=== PATIENT | male | born 1955 | race Caucasian/White ===

== ENCOUNTER 2023-01-28 09:25 | Emergency (ER) | payer MEDICARE, SELFPAY ==
[2023-01-28] VITALS (14 sets, daily range): BP systolic 193–280; BP diastolic 89–130; PULSE 94–115; RESP 10–18; TEMP 36.4; O2SAT 96–100
--- NOTE | ~2023-01-28 | CT_ITS ---
Non-contrast Head CT History: Hypertension Technique: Axial non-contrast imaging of the brain was performed. Dose reduction technique was used on this scan by utilizing automated exposure control and iterative reconstruction technique. The dose -length product (DLP) was 681.00 mGy-cm. Findings: There is no evidence of intracranial hemorrhage, mass lesion, or acute infarct. Brain par enchyma appears normal. The ventricles and subarachnoid spaces are normal in size. The calvarium ap pears normal. The visualized paranasal sinuses and mastoid air cells are clear. Impression: No significant abnormality seen. Reviewed, dictated and finalized at location . Impression: No significant abnormality seen.
--- NOTE | 2023-01-28 09:32 | ECG_ITS ---
Measurements Intervals [place] Rate: 116 P: 58 IN: 144 QRS: 57 QRSD: 84 T: 20 QT: 303 QTc: 423 Interpretive Statements SINUS TACHYCARDIA WITH OCCASIONAL VENTRICULAR PREMATURE COMPLEXES POSSIBLE LEFT ATRIAL ENLARGEMENT [-0.1mV P WAVE IN V1/V2] NONSPECIFIC T-WAVE ABNORMALITY ABNORMAL ECG NO PREVIOUS ECG AVAILABLE FOR COMPARISON Electronically Signed On 01-28-2023 17:17:01 CDT by Kimo Gayle M.D.
[2023-01-28 09:55] LABS: Basophils Percent Auto 0.2 % (0.2-1.2); Eosinophils Absolute Auto 0.1 K/mm3 (0-0.3); Hematocrit 47.8 % (42.0-52.0); Hemoglobin 15.8 g/dL (14.0-18.0); Immature Granulocyte Absolute 0.01 K/mm3 (0.00-0.031); Immature Granulocyte Percent A 0.2 % (0-0.5); Lymphocytes Absolute Auto 1.67 K/mm3 (0.9-3.2); Lymphocytes Percent Auto 29.2 % (18.3-44.2); Mean Corpuscular HGB Conc 33.1 g/dl (32-36); Mean Corpuscular Hemoglobin 33.1 pg (26-34); Mean Platelet Volume 8.7 fl (7.4-10.4); Monocytes Absolute Auto 0.5 K/mm3 (0.1-0.6); Monocytes Percent Auto 8.6 % (2.6-8.5); Neutrophils Absolute Auto 3.5 K/mm3 (1.3-6.7); Neutrophils Percent Auto 60.8 % (45.5-73.1); Platelet Count Result 215 k/mm3 (150-375); Red Blood Count 4.78 M/mm3 (4.6-6.20); Red Cell Distribution Width 13.3 % (11.5-14.5); White Blood Count 5.7 K/mm3 (4.5-10.0)
[2023-01-28] MEDS: hydrALAZINE HCL 20 MG/ML VIAL 10 MG IV PUSH (10:01)
[2023-01-28 10:04] LABS: Alanine Aminotransferase 26 U/L (6-50); Albumin Level 4.9 g/dL (3.5-5.1); Alkaline Phosphatase 71 U/L (38-126); Anion Gap 6 mmol/L (8-16); Aspartate Amino Transferase 32 U/L (17-59); Bilirubin,Total 1.2 mg/dL (0.2-1.3); Blood Urea Nitrogen 12 mg/dL (9-20); Carbon Dioxide 29 mmol/L (22-30); Chloride 102 mmol/L (98-107); Estimated CRCL calculation 92 ml/min; Estimated Glomerular Filt Rate > 60; Glucose 115 mg/dL (65-110); Potassium 4.3 mmol/L (3.4-5.0); Sodium 137 mmol/L (137-145)
--- NOTE | 2023-01-28 10:07 | ED.DIZZY ---
HPI - Dizziness General Chief Complaint: Dizziness Stated Complaint: Not feeling right Time Seen by Provider: 01/28/23 09:46 History of Present Illness HPI Narrative: 67-year-old male presented the emergency department for evaluation of elevated blood pressure. Patient states that he had a syncopal episode for approximate 1 minute approximately 2 weeks ago when he was having coffee with his brother. EMS was called and patient was found to be hypertensive with a systolic blood pressure of 190. Patient states that today he was having some increased lightheadedness and presented to ED for evaluation. Related Data Allergies Allergy/AdvReac Type Severity Reaction Status Date / Time No Known Allergies Allergy Verified 01/28/23 09:54 Review of Systems Review of Systems: All systems reviewed & are unremarkable except as noted in HPI and below Exam Narrative: APPEARANCE: Well appearing, no pain, no distress, well-nourished. HEAD: normocephalic, atraumatic. EYES: PERRLA/EOMI, conjunctivae clear. NOSE: Normal no drainage NECK: Supple. No adenopathy, no masses. RESPIRATORY: Airway patent, respirations nonlabored. Clear to auscultation bilaterally, no rales, rhonchi, wheezing. CARDIOVASCULAR: Regular rate and rhythm without murmurs rubs or gallops. ABDOMINAL: Soft, nontender, nondistended, normal bowel sounds MUSCULOSKELETAL: Moves all extremities. Strength/ROM intact, No edema, No calf tenderness. NEURO: Alert. Cranial nerves II through XII intact. Grossly intact SKIN: Warm, dry. Normal Color Course Course Emergency Course: 67-year-old male with history of uncontrolled hypertension presented the emergency department for evaluation of elevated blood pressure. I had lengthy discussion with the patient recommending admission and patient continued to decline. Patient's blood pressure was decreased by 30%. Patient was started on hydrochlorothiazide. Patient was educated on reasons to return to the emergency department. Patient states he does have follow-up on Wednesday with his primary care physician. Vital Signs Vital signs: Vital Signs Temperature 97.6 F 01/28/23 09:28 Pulse Rate 115 H 01/28/23 09:28 Respiratory Rate 18 01/28/23 09:28 Blood Pressure 280/130 H 01/28/23 09:28 Pulse Oximetry 100 01/28/23 09:28 Oxygen Delivery Room Air 01/28/23 09:28 Temperature 97.6 F 01/28/23 09:28 Pulse Rate 95 01/28/23 12:31 Respiratory Rate 12 01/28/23 12:31 Blood Pressure 193/89 H 01/28/23 12:31 Pulse Oximetry 97 01/28/23 12:31 Oxygen Delivery Room Air 01/28/23 09:28 MDM - Dizziness Differential Diagnosis Differential diagnosis: Likely other (Hypertensive urgency) Lab Data Attestation: I reviewed the patient's lab results. 01/28/23 09:48 01/28/23 09:48 Labs: Lab Results 01/28/23 Range/Units 09:48 WBC 5.7 (4.5-10.0) K/mm3 RBC 4.78 (4.6-6.20) M/mm3 Hgb 15.8 (14.0-18.0) g/dL Hct 47.8 (42.0-52.0) % MCV 100.0 (80-100) fl MCH 33.1 (26-34) pg MCHC 33.1 (32-36) g/dl RDW 13.3 (11.5-14.5) % Plt Count 215 (150-375) k/mm3 MPV 8.7 (7.4-10.4) fl Immature Gran % (Auto) 0.2 (0-0.5) % Neut % (Auto) 60.8 (45.5-73.1) % Lymph % (Auto) 29.2 (18.3-44.2) % Dare % (Auto) 8.6 H (2.6-8.5) % Eos % (Auto) 1.0 (0-4.4) % Baso % (Auto) 0.2 (0.2-1.2) % Lymph # (Auto) 1.67 (0.9-3.2) K/mm3 Dare # (Auto) 0.5 (0.1-0.6) K/mm3 Eos # (Auto) 0.1 (0-0.3) K/mm3 Baso # (Auto) 0.0 (0.0-0.1) K/mm3 Abs Immat Gran (auto) 0.01 (0.00-0.031) K/mm3 Absolute Neuts (auto) 3.5 (1.3-6.7) K/mm3 Absolute Nucleated RBC 0.0 (0.0-0.012) K/mm3 Nucleated RBC % 0.0 (0.0-0.2) % Sodium 137 (137-145) mmol/L Potassium 4.3 (3.4-5.0) mmol/L Chloride 102 (98-107) mmol/L Carbon Dioxide 29 (22-30) mmol/L Anion Gap 6 L (8-16) mmol/L BUN 12 (9-20) mg/dL Creatinine 0.90 (0.7-1.3) mg/dL Estim Creat Clear Calc 92 ml/min Estim
[2023-01-28 10:53] LABS: Troponin I < 0.012 ng/mL (0.000-0.034)
[2023-01-28] MEDS: METOPROLOL TARTRATE INJ 5 MG/5 ML VIAL IV PUSH (11:26)
[2023-01-28] MEDS: hydroCHLOROthiazide 25 MG TABLET PO (12:39)
== END 2023-01-28 12:41 | disposition home or self-care (01) ==
PROVIDERS: Emergency Provider Emergency Medicine
DX: I10 Essential (primary) hypertension (principal); R00.0 Tachycardia, unspecified; I49.3 Ventricular premature depolarization; R94.31 Abnormal electrocardiogram [ECG] [EKG]
CPT/HCPCS: 36415; 70450; 80053; 84484; 85025; 93005; 96374; 96375; 99284; A9270; J0360

== ENCOUNTER 2023-09-20 16:52 | Inpatient (IN) | payer MEDICARE, SELFPAY ==
[2023-09-20] VITALS (7 sets, daily range): BP systolic 103–143; BP diastolic 54–76; PULSE 69–83; RESP 13–20; TEMP 36.8–37; O2SAT 99–100; BMI 28.8
--- NOTE | ~2023-09-20 | US_ITS ---
US renal BI 09/23/2023 12:47 Procedure: Realtime transabdominal ultrasound of the kidneys and bladder. Indication: History of left renal agenesis. Acute renal insufficiency. Comparison: No prior studies for comparison. Findings: Right kidney is hypertrophic measuring 17.2 cm. No masses, hydronephrosis or stones are mayur ntified. Left kidney is not visualized. Bladder is not distended for evaluation. Impression: 1: Compensatory hypertrophy of the right kidney. Reviewed, dictated and finalized at location B. Impression: 1: Compensatory hypertrophy of the right kidney.
--- NOTE | ~2023-09-20 | XR_ITS ---
EXAMINATION: XR chest 1V portable Exam Date/Time: 09/20/2023 18:00 CDT HISTORY: fall Comparison: 08/24/2005. RESULT: Lines, tubes, and devices: None. Lungs and pleura: Clear. Cardiomediastinal silhouette: Stable. Other: No acute osseous or upper abdominal finding. IMPRESSION: No acute cardiopulmonary process. Reviewed, dictated and finalized at location K.
--- NOTE | ~2023-09-20 | CT_ITS ---
EXAMINATION: CT cervical spine wo con DATE: 09/20/2023 18:44 INDICATION: trauma TECHNIQUE: Computed tomography (CT) of the cervical spine was performed without intravenous contrast. Automated exposure control and iterative reconstruction technique were employed. The dose-length pro duct was 681.00 mGy-cm. Examination not completed for approximately 40 minutes, which delayed interpr etation COMPARISON: None. FINDINGS: Vertebral Body Alignment: Intact. Reversed lordosis, centered at C3-4. Craniocervical and atlantoaxial alignment: Mild degenerative change. Alignment intact. Osseous structures/fracture: No evidence of a lytic or blastic process in the visualized spine. No e vidence of acute fracture. Cervical soft tissues: The paraspinal soft tissues planes are maintained. Degenerative changes: Multilevel degenerative disc disease and facet arthropathy. Multilevel bilatera l severe neural foraminal narrowing. No severe central canal narrowing. IMPRESSION: No acute fracture or traumatic malalignment in the cervical spine. Reviewed, dictated and finalized at location K.
--- NOTE | ~2023-09-20 | CT_ITS ---
EXAMINATION: CT brain wo con DATE: 09/20/2023 18:44 INDICATION: mental status . TECHNIQUE: Computed tomography (CT) of the head was performed without intravenous contrast. The mA wa s adjusted according to patient size. Iterative reconstruction technique was employed. The dose-lengt h product was 681.00 mGy-cm. Examination not completed for approximately 40 minutes which delayed int erpretation. COMPARISON: 01/28/2023. FINDINGS: No acute intracranial hemorrhage or extra-axial fluid collection. No hydrocephalus, mass, or herniation. No acute ischemic infarct. Unremarkable dural venous sinus attenuation. No acute osseous abnormality. Left parietal scalp swelling/hematoma. The aerated spaces are clear. IMPRESSION: No acute intracranial process. Reviewed, dictated and finalized at location K.
--- NOTE | 2023-09-20 17:00 | ECG_ITS ---
Test Date: 2023-09-20 17:05:50 Measurements Intervals [place] Rate: 71 P: 31 ME: 208 QRS: 60 QRSD: 90 T: 63 QT: 386 QTc: 421 Interpretive Statements SINUS RHYTHM No previous ECG available for comparison Electronically Signed On 09-21-2023 10:49:49 CDT by Arabella Cee M.D.
[2023-09-20 17:30] LABS: Basophils Percent Auto 0.2 % (0.2-1.2); Eosinophils Percent Auto 0.1 % (0-4.4); Hematocrit 34.7 % (42.0-52.0); Hemoglobin 12.2 g/dL (14.0-18.0); Immature Granulocyte Absolute 0.05 K/mm3 (0.00-0.031); Immature Granulocyte Percent A 0.5 % (0-0.5); Lymphocytes Absolute Auto 1.09 K/mm3 (0.9-3.2); Lymphocytes Percent Auto 11.9 % (18.3-44.2); Mean Corpuscular HGB Conc 35.2 g/dl (32-36); Mean Corpuscular Hemoglobin 34.7 pg (26-34); Mean Corpuscular Volume 98.6 fl (80-100); Mean Platelet Volume 8.9 fl (7.4-10.4); Monocytes Percent Auto 11.1 % (2.6-8.5); Neutrophils Percent Auto 76.2 % (45.5-73.1); Platelet Count Result 270 k/mm3 (150-375); Red Blood Count 3.52 M/mm3 (4.6-6.20); Red Cell Distribution Width 12.6 % (11.5-14.5); White Blood Count 9.2 K/mm3 (4.5-10.0)
[2023-09-20 17:41] LABS: Ethanol 166 mg/dL (<10)
[2023-09-20 17:44] LABS: Alanine Aminotransferase 33 U/L (6-50); Albumin Level 4.8 g/dL (3.5-5.1); Alkaline Phosphatase 98 U/L (38-126); Anion Gap 24 mmol/L (4-12); Aspartate Amino Transferase 62 U/L (17-59); Bilirubin,Total 1.9 mg/dL (0.2-1.3); Blood Urea Nitrogen 17 mg/dL (9-20); Calcium 8.8 mg/dL (8.4-10.2); Carbon Dioxide 16 mmol/L (22-30); Chloride 77 mmol/L (98-107); Estimated CRCL calculation 40 ml/min; Estimated Glomerular Filt Rate 34; Glucose 86 mg/dL (65-110); Potassium 3.5 mmol/L (3.4-5.0); Sodium 117 mmol/L (137-145)
--- NOTE | 2023-09-20 17:52 | ED.ALCOHOL ---
HPI - Alcohol General Chief Complaint: Alcohol Stated Complaint: ?ETOH Time Seen by Provider: 09/20/23 17:44 History of Present Illness HPI narrative: Patient is a 67-year-old male with history of heavy ETOH use, hypertension here after being found down in the parking lot of his apartment complex. Patient states he has been a heavy drinker for many years, he believes that this moore started about 1 week ago. He notes he has been drinking beer and Tequila. EMS noted he was initially unresponsive but awakened in route and confirmed that he had been drinking alcohol. He currently endorses some generalized weakness and fatigue, denies any headache, does not believe he fell or hit his head. Denies any extremity pain or injuries. Denies any chest pain or abdominal pain. He does not believe that he experiences any withdrawal symptoms when he goes days without drinking. Denies any withdrawal tremors or seizures in the past. He does believe he drank alcohol this morning. Related Data Allergies Allergy/AdvReac Type Severity Reaction Status Date / Time No Known Allergies Allergy Verified 03/01/23 11:25 Review of Systems Review of Systems: All systems reviewed & are unremarkable except as noted in HPI and below PMFSH Social History Social History (Updated 03/01/23 @ 11:25 by Teagan Camilo MA) Smoking packs per day: 0.5 Smoking cigarettes per day: 10.0 Years smoked: 20 Smoking pack-years: 10.00 Smoking status: Current every day smoker Tobacco type: cigarettes Alcohol intake: current Drinks per week: 18 Substance use: never Lack of Transportation: No Lack of Food: Never True Current Housing: I Have Housing Concerned About Future Housing: No Difficulty Paying Gas/Electric Bills: No Difficulty Paying for Meds: No Currently Unemployed: No Education: Decline to Answer Difficulty w/ Childcare or Family Care: Decline to Answer Living arrangements: with family Spiritual care concerns: No Agree to blood products: Yes Exam Narrative: GENERAL: Well-appearing, well-nourished, and in no acute distress. HEAD: Normocephalic, atraumatic. EYES: PERRLA and EOMI. ENT: Nares clear. Mucous membranes moist. NECK: Supple. CHEST: Clear to auscultation. No respiratory distress. HEART: Regular rate and rhythm. Normal peripheral pulses. ABDOMEN: Soft, nontender, nondistended. EXTREMITIES: Normal range of motion. No edema. Extremities appear atraumatic. SKIN: Warm, dry, no rash. NEURO: No focal deficits. No facial droop, no upper or lower extremity drift. Alert and oriented x3. PSYCH: Normal mood and affect. Course Course Emergency Course: Chart review performed, patient here after being found in a parking lot of his apartment complex unresponsive. Had endorsed drinking beer and Tequila since the weekend, triage vitals normal. Triage lab work reviewed, CBC unremarkable, sodium low at 117. RAISA present with a creatinine of 2.0, baseline appears to be within normal limits 0.90. Mild elevation in AST. ETOH 166. Patient seen evaluated, nontoxic appearing, he is alert and oriented at this time. Will do CT head, cervical spine, chest x-ray given the fact that he was found down on the ground. Will additionally add on a troponin. IV fluids have been ordered. Discussed plan for admission given hyponatremia, RAISA, patient agreeable. Chest x-ray negative. Spoke with Dr. Trino Callahan who accepts patient for admission. She recommends an additional 2 L normal saline IV fluid resuscitation as well as CIWA orders. The pump placed. She recommends placement and med surge with telemetry. Vital Signs Vital signs: Vital Signs Temperature 98.2 F 09/20/23 16:56 Pulse Rate 69 09/20/23 16:56 Respiratory Rate 14 09/20/23 16:56 Blood Pressure 134/69 09/20/23 16:56 Pulse Oximetry 100 09/20/23 16:56 Oxygen Delivery Room Air 09/20/23 16:56 Temperature 98.2 F 09/20/23 16:56 Pulse
--- NOTE | 2023-09-20 17:52 | PC.NURSE ---
Dr. Martinez informed of low sodium level.
[2023-09-20] MEDS: LACTATED RINGERS 1,000 ML 999 ML IV CONT (18:03)
[2023-09-20 18:51] LABS: Troponin I < 0.012 ng/mL (0.000-0.034)
[2023-09-20 19:17] LABS: Amphetamine Screen Urine Negative (Negative); Appearance Urine Clear (Clear); Bacteria Urine None Seen /hpf; Barbiturate Screen Urine Negative (Negative); Benzodiazepines Screen Urine Negative (Negative); Bilirubin Urine Negative (Negative); Blood Urine 1+ (Negative); Cannabinoid Screen Urine Negative (Negative); Cocaine Screen Urine Negative (Negative); Color Urine Dark Yellow (Yellow); Glucose Urine UA Negative (Negative); Ketones Urine 1+ mg/dL (Negative); Leukocyte Esterase Ur Trace LEU/UL (Negative); Methadone Screen Urine Negative (Negative); Need Manual Microscopic Reviewed; Nitrate Urine Negative (Negative); Opiate Screen Urine Negative (Negative); Phencyclidine Screen Urine Negative (Negative); Protein Urine 1+ mg/dL (Negative); Specific Grav Ur 1.012 (1.001-1.035); Squamous Epithelial Cell Urine Occasional /hpf (Few); pH Urine 5.5 (5.0-9.0)
[2023-09-20 19:20] LABS: Add Urine Microscopic? YES
--- NOTE | 2023-09-20 19:38 | PM.IMHP ---
H&P: HPI History of Present Illness Date/Time: 09/20/23 19:38 Chief Complaint: syncope Narrative: This is a 67-year-old male with medical history significant for hypertension, alcohol dependence. Patient presents to the emergency room due to syncopal episode was found down in the parking lot of his apartment complex and brought to the emergency room. Patient has no recollection of events states that he has been drinking for the last several days not really having meals. It denies any alcohol withdrawal prior to today events. In emergency room patient preliminary workup was significant for sodium 117 chloride 77 creatinine of 2. EXAMINATION: XR chest 1V portable Exam Date/Time: 09/20/2023 18:00 CDT HISTORY: fall Comparison: 08/24/2005. RESULT: Lines, tubes, and devices: None. Lungs and pleura: Clear. Cardiomediastinal silhouette: Stable. Other: No acute osseous or upper abdominal finding. IMPRESSION: No acute cardiopulmonary process. EXAMINATION: CT brain wo con DATE: 09/20/2023 18:44 INDICATION: mental status . TECHNIQUE: Computed tomography (CT) of the head was performed without intravenous contrast. The mA was adjusted according to patient size. Iterative reconstruction technique was employed. The dose-length product was 681.00 mGy-cm. Examination not completed for approximately 40 minutes which delayed interpretation. COMPARISON: 01/28/2023. FINDINGS: No acute intracranial hemorrhage or extra-axial fluid collection. No hydrocephalus, mass, or herniation. No acute ischemic infarct. Unremarkable dural venous sinus attenuation. No acute osseous abnormality. Left parietal scalp swelling/hematoma. The aerated spaces are clear. IMPRESSION: No acute intracranial process. EXAMINATION: CT cervical spine wo con DATE: 09/20/2023 18:44 INDICATION: trauma TECHNIQUE: Computed tomography (CT) of the cervical spine was performed without intravenous contrast. Automated exposure control and iterative reconstruction technique were employed. The dose-length product was 681.00 mGy-cm. Examination not completed for approximately 40 minutes, which delayed interpretation COMPARISON: None. FINDINGS: Vertebral Body Alignment: Intact. Reversed lordosis, centered at C3-4. Craniocervical and atlantoaxial alignment: Mild degenerative change. Alignment intact. Osseous structures/fracture: No evidence of a lytic or blastic process in the visualized spine. No evidence of acute fracture. Cervical soft tissues: The paraspinal soft tissues planes are maintained. Degenerative changes: Multilevel degenerative disc disease and facet arthropathy. Multilevel bilateral severe neural foraminal narrowing. No severe central canal narrowing. IMPRESSION: No acute fracture or traumatic malalignment in the cervical spine. Review of Systems Review of Systems: Syncope ROS unobtainable: Yes unobtainable due to mental status ( patient is inebriated at this time has no recollection of event) [facility] Social History Social History (Updated 03/01/23 @ 11:25 by Teagan Camilo MA) Smoking packs per day: 0.5 Smoking cigarettes per day: 10.0 Years smoked: 20 Smoking pack-years: 10.00 Smoking status: Current every day smoker Tobacco type: cigarettes Alcohol intake: current Drinks per week: 18 Substance use: never Lack of Transportation: No Lack of Food: Never True Current Housing: I Have Housing Concerned About Future Housing: No Difficulty Paying Gas/Electric Bills: No Difficulty Paying for Meds: No Currently Unemployed: No Education: Decline to Answer Difficulty w/ Childcare or Family Care: Decline to Answer Living arrangements: with family Spiritual care concerns: No Agree to blood products: Yes Meds Home Medications and Allergies Home Medications Medication Instructions Recorded Confirmed Type amlodipine 10 mg t
[2023-09-20] MEDS: SODIUM CHLORIDE 0.9% IV 1,000 ML 999 ML IV CONT ×2 (19:47→19:48)
--- NOTE | 2023-09-20 19:54 | PC.NURSE ---
Patient states his last drink was at 1330 today.
[2023-09-20 20:05] LABS: Glucose Point of Care 68 mg/dl (65-105)
[2023-09-20 20:12] LABS: Fractional Inspired Oxygen 21 %; HCO3 VBG 19.5 mEq/l (24.0-30.0)
[2023-09-20 20:13] LABS: Glucose Point of Care 71 mg/dl (65-105)
[2023-09-20 20:14] LABS: PCO2 VBG 30.6 mmHg (42.0-48.0); PO2 VBG < 27.0 mmHg (35.0-45.0); pH VBG 7.422 (7.300-7.400)
[2023-09-20 20:28] LABS: Lactic Acid Reflex 2.7 mmol/L (0.7-2.0)
[2023-09-20 21:56] LABS: Ethanol 79 mg/dL (<10)
[2023-09-20 23:13] LABS: Reflex Lactic Acid Yes or No Add Lactic
[2023-09-20 23:22] LABS: Glucose Point of Care 58 mg/dl (65-105)
[2023-09-20 23:22] LABS: Glucose Point of Care 59 mg/dl (65-105)
[2023-09-20 23:54] LABS: Lactic Acid 2.3 mmol/L (0.7-2.0)
[2023-09-20 23:56] LABS: Glucose Point of Care 70 mg/dl (65-105)
[2023-09-21] VITALS (11 sets, daily range): BP systolic 97–113; BP diastolic 46–55; PULSE 77–121; RESP 18–20; TEMP 36.2–36.4; O2SAT 97–99
[2023-09-21] MEDS: chlordiazePOXIDE (*CRX) 25 MG CAPSULE 50 MG PO (00:46)
[2023-09-21 00:52] LABS: Glucose Point of Care 89 mg/dl (65-105)
[2023-09-21 03:18] LABS: Glucose Point of Care 104 mg/dl (65-105)
[2023-09-21 06:00] LABS: Glucose Point of Care 102 mg/dl (65-105)
[2023-09-21 07:43] LABS: Glucose Point of Care 94 mg/dl (65-105)
[2023-09-21] MEDS: THIAMINE HCL 200 MG/2 ML VIAL 100 MG IV PUSH (09:01)
--- NOTE | 2023-09-21 09:19 | PM.IMPN ---
Progress Note: A&P Assessment and Plan (1) Acute hyponatremia: Code(s): E87.1 - Hypo-osmolality and hyponatremia Status: Acute Assessment and Plan: admit to med tele likely a combination of diuretic, beer potomania and poor per orally intake patient currently receiving 0.9 normal saline will repeated sodium level- monitor daily no more than 6 mEq daily will hold hydrochlorothiazide, amlodipine and metoprolol- ok t restart amlodipine and metoprolol if needed-as now all stable (2) Alcohol intoxication: Qualifiers: Complication of substance-induced condition: uncomplicated Qualified Code(s): F10.920 - Alcohol use, unspecified with intoxication, uncomplicated Code(s): F10.929 - Alcohol use, unspecified with intoxication, unspecified Status: Acute Assessment and Plan: CIWA protocol as needed (3) RAISA (acute kidney injury): Code(s): N17.9 - Acute kidney failure, unspecified Status: Acute Assessment and Plan: will hold losartan will hold hydrochlorothiazide renal ultrasound in a.m. receiving IV fluids (4) Dyslipidemia: Code(s): E78.5 - Hyperlipidemia, unspecified Status: Acute Assessment and Plan: on a statin-will hold it for now (5) Tobacco abuse: Code(s): Z72.0 - Tobacco use Status: Acute Assessment and Plan: nicotine patch as needed Time Spent With Patient Time with patient: 25 - 35 minutes Subjective Date/time seen: 09/21/23 09:19 Interval history: 67-year-old male with PMH of hypertension, alcohol dependence admitted from emergency room due to syncopal episode was found down in the parking lot of his apartment complex and brought to the emergency room. Patient has no recollection of events states that he has been drinking for the last several days not really having meals. It denies any alcohol withdrawal prior to today events. In emergency room patient preliminary workup was significant for sodium 117 chloride [address] head was done - No acute intracranial process CT cerv spine- No acute fracture or traumatic malalignment in the cervical spine. Admitted for IV fluid repalcement, CIWA protocol. Renal ultrasound. holding BP meds and diuretics. Pt is a smoker as well- nicotine patch is ordered. 09/20- pt is seen and examined today Review of Systems Review of Systems: Syncope ROS unobtainable: Yes unobtainable due to mental status ( patient is inebriated at this time has no recollection of event) Exam Narrative: patient is laying in a stretcher Const: General: comfortable, no acute distress, well developed, alert, awake, average body habitus and overweight Nutritional Appearance: average body habitus and overweight Orientation/consciousness: oriented to person, oriented to place and patient oriented x3 HENMT: Head: normal to inspection, normocephalic and atraumatic Ears: hearing grossly normal bilaterally Face/Nose/Sinus: normal facial exam Face and sinus: normal facial exam Eyes: General: appearance normal, both eyes and all related structures Pupils: Equal, round and reactive pupils present EOM: EOMs intact bilaterally Neck: Neck: full ROM, no lymphadenopathy and no JVD Thyroid: thyroid normal Lymphatic: no lymphadenopathy noted Resp: Effort & Inspection: normal respiratory effort and able to speak in complete sentences Auscultation: clear to auscultation bilaterally Cardio: Jugular venous distension: no JVD Rate: regular rate Rhythm: regular rhythm Heart sounds: S1 normal heart sound present and S2 normal heart sound present : General: Yes deferred Skin: Rashes: no rashes Wounds: no wounds Neuro: General: oriented to person, oriented to place, patient oriented x3 and CN's II-XI intact bilaterally Cranial nerves: Yes CN's II-XII intact bilaterally and Yes Equal, round and reactive pupils present Cognition (Neuro): normal cognition Speech: normal spee
[2023-09-21 11:26] LABS: Glucose Point of Care 133 mg/dl (65-105)
[2023-09-21 16:34] LABS: Glucose Point of Care 131 mg/dl (65-105)
[2023-09-21 16:34] LABS: Glucose Point of Care < 20 mg/dl (65-105)
[2023-09-21 17:00] LABS: Sodium 127 mmol/L (137-145)
[2023-09-21 17:03] LABS: Alanine Aminotransferase 23 U/L (6-50); Albumin Level 3.5 g/dL (3.5-5.1); Alkaline Phosphatase 80 U/L (38-126); Anion Gap 6 mmol/L (4-12); Aspartate Amino Transferase 40 U/L (17-59); Bilirubin,Total 1.2 mg/dL (0.2-1.3); Blood Urea Nitrogen 17 mg/dL (9-20); Calcium 8.6 mg/dL (8.4-10.2); Carbon Dioxide 27 mmol/L (22-30); Chloride 94 mmol/L (98-107); Estimated CRCL calculation 38 ml/min; Estimated Glomerular Filt Rate 38; Glucose 127 mg/dL (65-110); Potassium 3.7 mmol/L (3.4-5.0); Sodium 127 mmol/L (137-145)
--- NOTE | 2023-09-21 17:17 | PC.NURSE ---
Patient has been refusing all doses of scheduled Librium on this shift. CIWAs have been 1.
[2023-09-22] VITALS (12 sets, daily range): BP systolic 98–129; BP diastolic 49–83; PULSE 72–133; RESP 16–20; TEMP 35.6–36.6; O2SAT 97–99
[2023-09-22 00:49] LABS: Glucose Point of Care 134 mg/dl (65-105)
[2023-09-22 06:26] LABS: Alanine Aminotransferase 22 U/L (6-50); Albumin Level 3.6 g/dL (3.5-5.1); Alkaline Phosphatase 73 U/L (38-126); Anion Gap 5 mmol/L (4-12); Aspartate Amino Transferase 37 U/L (17-59); Bilirubin,Total 1.1 mg/dL (0.2-1.3); Blood Urea Nitrogen 14 mg/dL (9-20); Calcium 8.7 mg/dL (8.4-10.2); Carbon Dioxide 29 mmol/L (22-30); Chloride 98 mmol/L (98-107); Estimated CRCL calculation 42 ml/min; Estimated Glomerular Filt Rate 43; Glucose 115 mg/dL (65-110); Potassium 3.2 mmol/L (3.4-5.0); Sodium 132 mmol/L (137-145)
[2023-09-22] MEDS: THIAMINE HCL 200 MG/2 ML VIAL 100 MG IV PUSH (09:14)
[2023-09-22 10:01] LABS: Basophils Percent Auto 0.4 % (0.2-1.2); Eosinophils Absolute Auto 0.1 K/mm3 (0-0.3); Eosinophils Percent Auto 1.1 % (0-4.4); Hematocrit 30.4 % (42.0-52.0); Hemoglobin 10.3 g/dL (14.0-18.0); Immature Granulocyte Absolute 0.02 K/mm3 (0.00-0.031); Immature Granulocyte Percent A 0.4 % (0-0.5); Lymphocytes Absolute Auto 1.69 K/mm3 (0.9-3.2); Lymphocytes Percent Auto 31.5 % (18.3-44.2); Mean Corpuscular HGB Conc 33.9 g/dl (32-36); Mean Corpuscular Volume 100.3 fl (80-100); Mean Platelet Volume 9.4 fl (7.4-10.4); Monocytes Absolute Auto 0.7 K/mm3 (0.1-0.6); Monocytes Percent Auto 13.6 % (2.6-8.5); Neutrophils Absolute Auto 2.8 K/mm3 (1.3-6.7); Platelet Count Result 234 k/mm3 (150-375); Red Blood Count 3.03 M/mm3 (4.6-6.20); Red Cell Distribution Width 13.2 % (11.5-14.5); White Blood Count 5.4 K/mm3 (4.5-10.0)
[2023-09-22 11:36] LABS: Glucose Point of Care 142 mg/dl (65-105)
[2023-09-22] MEDS: POTASSIUM CHLORIDE 20 MEQ ER TABLET 40 MEQ PO (13:15)
--- NOTE | 2023-09-22 13:55 | PM.IMPN ---
Progress Note: A&P Assessment and Plan (1) Acute hyponatremia: Code(s): E87.1 - Hypo-osmolality and hyponatremia Status: Acute Assessment and Plan: likely a combination of diuretic, beer potomania and poor per orally intake - Patient received IV NS and sodium level now at 132 on am labs - Continue to monitor with am labs - No neuro deficits on exam (2) Alcohol intoxication: Qualifiers: Complication of substance-induced condition: uncomplicated Qualified Code(s): F10.920 - Alcohol use, unspecified with intoxication, uncomplicated Code(s): F10.929 - Alcohol use, unspecified with intoxication, unspecified Status: Acute Assessment and Plan: Patient reports drinking 5 tequila shots a night. Longest he has been sober in 1 week. He denies history of withdrawal symptoms. - [facility] protocol - Thiamine supplementation - B12 WNL - Folate pending (3) RAISA (acute kidney injury): Code(s): N17.9 - Acute kidney failure, unspecified Status: Acute Assessment and Plan: - BUN/Cr downtrending, 14/1.6 on am labs - will continue to hold losartan and hydrochlorothiazide - renal ultrasound in a.m. - monitor I/O - avoid nephrotoxic medications (4) Dyslipidemia: Code(s): E78.5 - Hyperlipidemia, unspecified Status: Acute Assessment and Plan: on a statin-will hold it for now (5) Tobacco abuse: Code(s): Z72.0 - Tobacco use Status: Acute Assessment and Plan: nicotine patch as needed (6) Orthostatic hypotension: Code(s): I95.1 - Orthostatic hypotension Status: Acute Assessment and Plan: Orthostatic blood pressures positive. Patient notes that since starting the blood pressure medications he has been dizzy upon standing and noticeably lightheaded. He was recently started on amlodipine, losartan-HCTZ and metoprolol. All of these medications are currently on hold and patietns blood pressure remains stable. - Continue to monitor Time Spent With Patient Time with patient: 25 - 35 minutes Subjective Date/time seen: 09/22/23 13:55 Interval history: Patient is pleasant lying comfortably in bed. Orthostatic vital signs were performed and found to be positive. Patient reports that since starting his new blood pressure medications he has been dizzy and lightheaded especially on standing. Continue to hold these medications. Patient continues to have a mild RAISA with Cr 1.6, but this continues to downtrend. He denies chest pain, shortness of breath, palpitations, nausea/vomiting and changes in bowel/bladder. Review of Systems Review of Systems: All systems reviewed & are unremarkable except as noted in HPI and below Exam Narrative: General: male in no acute respiratory distress who is nontoxic appearing, lying semi recumbent in bed. HEENT: Normocephalic. Atraumatic. Pupils equal round reactive to light. Extraocular movement intact. Sclera clear and anicteric. No facial asymmetry. Chest: Lungs are clear to auscultation bilaterally. No wheezes or crackles. CV: Heart was regular rate and rhythm. S1/S2. No murmurs, gallops, or rubs. Abd: Abdomen was soft. Nontender. Nondistended. Positive bowel sounds. No organomegaly or masses. Ext: No clubbing, cyanosis, or edema. 2+ DP pulses bilaterally. Neuro: Patient is alert and oriented x4. Cranial nerves 2-12 are intact. Speech is clear. Psych: Normal mood and affect. Patient is pleasant and cooperative. Skin: Warm and dry. No rashes noted. Objective Data Vital Signs Vital Signs: Vital Signs - 24 hr 09/21/23 14:00 09/21/23 16:00 09/21/23 16:00 Temperature 97.2 F L Pulse Rate 90 90 Pulse Rate [Radial] 94 Respiratory Rate 18 Blood Pressure 97/51 L Pulse Oximetry 97 Oxygen Delivery Fraction of Inspired Oxygen 09/21/23 20:00 09/21/23 20:00 09/21/23 21:35 Temperature 97.3 F L Pulse Rate 90 96 Pulse Rate [Radial] 88 Respiratory Rate
--- NOTE | 2023-09-22 18:58 | PC.NURSE ---
Pt c/o dizziness upon ambulation. Orthostatic positive, but pt continues to refuse bed alarm despite being educated about risk of fall and injury.
[2023-09-22 20:01] LABS: Glucose Point of Care 137 mg/dl (65-105)
[2023-09-23] VITALS (14 sets, daily range): BP systolic 94–125; BP diastolic 49–79; PULSE 69–106; RESP 16–20; TEMP 36.1–37; O2SAT 96–98
[2023-09-23 00:49] LABS: Glucose Point of Care 129 mg/dl (65-105)
[2023-09-23 05:22] LABS: Glucose Point of Care 114 mg/dl (65-105)
[2023-09-23 06:43] LABS: Basophils Percent Auto 0.6 % (0.2-1.2); Eosinophils Absolute Auto 0.2 K/mm3 (0-0.3); Eosinophils Percent Auto 2.7 % (0-4.4); Hemoglobin 10.7 g/dL (14.0-18.0); Immature Granulocyte Absolute 0.04 K/mm3 (0.00-0.031); Immature Granulocyte Percent A 0.6 % (0-0.5); Lymphocytes Absolute Auto 2.13 K/mm3 (0.9-3.2); Lymphocytes Percent Auto 31.8 % (18.3-44.2); Mean Corpuscular HGB Conc 33.4 g/dl (32-36); Mean Corpuscular Volume 101.6 fl (80-100); Mean Platelet Volume 9.1 fl (7.4-10.4); Monocytes Absolute Auto 0.8 K/mm3 (0.1-0.6); Monocytes Percent Auto 11.5 % (2.6-8.5); Neutrophils Absolute Auto 3.5 K/mm3 (1.3-6.7); Neutrophils Percent Auto 52.8 % (45.5-73.1); Platelet Count Result 258 k/mm3 (150-375); Red Blood Count 3.15 M/mm3 (4.6-6.20); Red Cell Distribution Width 13.2 % (11.5-14.5); White Blood Count 6.7 K/mm3 (4.5-10.0)
[2023-09-23 06:58] LABS: Alanine Aminotransferase 22 U/L (6-50); Albumin Level 3.8 g/dL (3.5-5.1); Alkaline Phosphatase 77 U/L (38-126); Anion Gap 8 mmol/L (4-12); Aspartate Amino Transferase 32 U/L (17-59); Bilirubin,Total 0.8 mg/dL (0.2-1.3); Blood Urea Nitrogen 11 mg/dL (9-20); Calcium 8.9 mg/dL (8.4-10.2); Carbon Dioxide 27 mmol/L (22-30); Chloride 101 mmol/L (98-107); Estimated CRCL calculation 40 ml/min; Estimated Glomerular Filt Rate 41; Glucose 113 mg/dL (65-110); Potassium 3.5 mmol/L (3.4-5.0); Sodium 136 mmol/L (137-145)
--- NOTE | 2023-09-23 08:08 | PM.IMPN ---
Progress Note: A&P Assessment and Plan (1) Acute hyponatremia: Code(s): E87.1 - Hypo-osmolality and hyponatremia Status: Acute Assessment and Plan: likely a combination of diuretic, beer potomania and poor oral intake - Patient received IV NS and sodium level now at 136 on am labs, will continue IV NS as patient has an RAISA - Continue to monitor with am labs - No neuro deficits on exam (2) RAISA (acute kidney injury): Code(s): N17.9 - Acute kidney failure, unspecified Status: Acute Assessment and Plan: - BUN/Cr downtrending, 02/10.7 on am labs, restarted patient on IV NS as he reports he has not been drinking much - will continue to hold losartan and hydrochlorothiazide - renal ultrasound ordered - monitor I/O - avoid nephrotoxic medications (3) Alcohol intoxication: Qualifiers: Complication of substance-induced condition: uncomplicated Qualified Code(s): F10.920 - Alcohol use, unspecified with intoxication, uncomplicated Code(s): F10.929 - Alcohol use, unspecified with intoxication, unspecified Status: Acute Assessment and Plan: Patient reports drinking 5 tequila shots a night. Longest he has been sober in 1 week. He denies history of withdrawal symptoms. - [facility] protocol - Thiamine supplementation - B12 WNL - Folate pending (4) Orthostatic hypotension: Code(s): I95.1 - Orthostatic hypotension Status: Acute Assessment and Plan: Orthostatic blood pressures positive. Patient notes that since starting the blood pressure medications he has been dizzy upon standing and noticeably lightheaded. He was recently started on amlodipine, losartan-HCTZ and metoprolol. All of these medications are currently on hold and patietns blood pressure remains borderline hypotensive. - Continue to monitor 09/22: Orthostatic vital signs reassessed and are negative. Patient continues to report dizziness with position changes and ambulation. (5) Dyslipidemia: Code(s): E78.5 - Hyperlipidemia, unspecified Status: Acute Assessment and Plan: on a statin-will hold it for now (6) Tobacco abuse: Code(s): Z72.0 - Tobacco use Status: Acute Assessment and Plan: nicotine patch as needed Time Spent With Patient Time with patient: 25 - 35 minutes Subjective Date/time seen: 09/23/23 08:08 Interval history: Patient is pleasant sitting upright in bed. He continues to endorse dizziness with position changes and ambulation. He states that this has been going on since starting the blood pressure medications, however he has not been receiving these medications due to borderline hypotension. Of note he did have tachycardia overnight. Will restart his metoprolol and continue to monitor heart rate and blood pressure. Patient continues to have RAISA on a.m. labs. He states that he has not been drinking much. Restarted patient on IV normal saline. Will reassess kidney function this afternoon. Renal ultrasound has been ordered but not completed. Patient's electrolytes remain within normal limits. 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 This is not seen per chart review. If RAISA persist may need to consult Nephrology. Review of Systems Review of Systems: All systems reviewed & are unremarkable except as noted in HPI and below Exam Narrative: AF HR 106 RR 16 SpO2 96 BP 105/66 General: male in no acute respiratory distress who is nontoxic appearing, lying semi recumbent in bed. HEENT: Normocephalic. Atraumatic. Pupils equal round reactive to light. Extraocular movement intact. Sclera clear and anicteric. No facial asymmetry. Chest: Lungs are clear to auscultation bilaterally. No wheezes or crackles. CV: Heart was regular rate and rhythm. S1/S2. No murmurs, gallops, or rubs. Abd: Abdomen was soft. Nontender. Nondistended. Positive bowel sounds. No organomegaly or masses. Ext: No clubbing
[2023-09-23] MEDS: SODIUM CHLORIDE 0.9% IV 1,000 ML 100 ML IV CONT ×2 (11:19→20:33)
[2023-09-23] MEDS: THIAMINE HCL 200 MG/2 ML VIAL 100 MG IV PUSH (11:20)
[2023-09-23 11:49] LABS: Glucose Point of Care 163 mg/dl (65-105)
[2023-09-23 14:51] LABS: Estimated CRCL calculation 45 ml/min; Estimated Glomerular Filt Rate 47
[2023-09-24] VITALS (9 sets, daily range): BP systolic 107–129; BP diastolic 57–65; PULSE 66–86; RESP 16–18; TEMP 36.6–36.7; O2SAT 94–100
[2023-09-24 00:19] LABS: Glucose Point of Care 105 mg/dl (65-105)
[2023-09-24 07:47] LABS: Basophils Percent Auto 0.4 % (0.2-1.2); Eosinophils Absolute Auto 0.2 K/mm3 (0-0.3); Eosinophils Percent Auto 2.7 % (0-4.4); Hematocrit 29.9 % (42.0-52.0); Hemoglobin 9.9 g/dL (14.0-18.0); Immature Granulocyte Absolute 0.03 K/mm3 (0.00-0.031); Immature Granulocyte Percent A 0.5 % (0-0.5); Lymphocytes Absolute Auto 1.95 K/mm3 (0.9-3.2); Lymphocytes Percent Auto 35.3 % (18.3-44.2); Mean Corpuscular HGB Conc 33.1 g/dl (32-36); Mean Corpuscular Hemoglobin 34.4 pg (26-34); Mean Corpuscular Volume 103.8 fl (80-100); Monocytes Absolute Auto 0.6 K/mm3 (0.1-0.6); Monocytes Percent Auto 11.6 % (2.6-8.5); Neutrophils Absolute Auto 2.7 K/mm3 (1.3-6.7); Neutrophils Percent Auto 49.5 % (45.5-73.1); Platelet Count Result 241 k/mm3 (150-375); Red Blood Count 2.88 M/mm3 (4.6-6.20); Red Cell Distribution Width 13.4 % (11.5-14.5); White Blood Count 5.5 K/mm3 (4.5-10.0)
[2023-09-24 07:48] LABS: Glucose Point of Care 117 mg/dl (65-105)
[2023-09-24 07:56] LABS: Alanine Aminotransferase 19 U/L (6-50); Albumin Level 3.4 g/dL (3.5-5.1); Alkaline Phosphatase 68 U/L (38-126); Anion Gap 8 mmol/L (4-12); Aspartate Amino Transferase 25 U/L (17-59); Bilirubin,Total 0.6 mg/dL (0.2-1.3); Blood Urea Nitrogen 10 mg/dL (9-20); Calcium 8.4 mg/dL (8.4-10.2); Carbon Dioxide 24 mmol/L (22-30); Chloride 106 mmol/L (98-107); Estimated CRCL calculation 52 ml/min; Estimated Glomerular Filt Rate 55; Glucose 104 mg/dL (65-110); Potassium 3.7 mmol/L (3.4-5.0); Sodium 138 mmol/L (137-145)
[2023-09-24] MEDS: THIAMINE HCL 200 MG/2 ML VIAL 100 MG IV PUSH (09:44)
[2023-09-24] MEDS: METOPROLOL SUCCINATE EXT REL 25 MG TABCR PO (09:44)
[2023-09-24 10:38] LABS: Red Blood Cell Folate 683 ng/mL RBC (>280)
[2023-09-24] MEDS: SODIUM CHLORIDE 0.9% IV 1,000 ML 100 ML IV CONT (11:19)
[2023-09-24 11:49] LABS: Glucose Point of Care 112 mg/dl (65-105)
--- NOTE | 2023-09-24 13:01 | PM.DS ---
DS: Admitting Diagnosis Discharge Date 09/24/23 Admitting Diagnosis Acute hyponatremia RAISA Alcohol intoxication Orthostatic hypotension Dyslipidemia Tobacco abuse DS: Discharge Diagnosis Discharge Diagnosis (1) Acute hyponatremia: Code(s): E87.1 - Hypo-osmolality and hyponatremia Status: Acute (2) RAISA (acute kidney injury): Code(s): N17.9 - Acute kidney failure, unspecified Status: Acute (3) Alcohol intoxication: Qualifiers: Complication of substance-induced condition: uncomplicated Qualified Code(s): F10.920 - Alcohol use, unspecified with intoxication, uncomplicated Code(s): F10.929 - Alcohol use, unspecified with intoxication, unspecified Status: Acute (4) Orthostatic hypotension: Code(s): I95.1 - Orthostatic hypotension Status: Acute (5) Dyslipidemia: Code(s): E78.5 - Hyperlipidemia, unspecified Status: Acute (6) Tobacco abuse: Code(s): Z72.0 - Tobacco use Status: Acute DS: Summary Hospital Course Reason for hospitalization: Acute hyponatremia RAISA Alcohol intoxication Orthostatic hypotension Dyslipidemia Tobacco abuse Hospital Course: 67 year old male with past medical history of alcohol abuse, dyslipidemia, and hypertension reports to the hospital after being found down in the apartment complex parking lot. On admission patient is intoxicated with an EtOH 166. Labs revealed hyponatremia and RAISA likely due to a combination of diuretic, beer potomania and poor oral intake. He was started on IV NS and these resolved. He is to obtain a CMP blood draw in 3 days to reassess kidney function. Patient noted to have borderline hypotension throughout his admission. He was recently started on multiple blood pressure medications including amlodipine, losartan-hydrochlorothiazide, and metoprolol. He was initially reporting dizziness and had orthostatic hypotension reported. However this resolved and patient was ambulating throughout his room without issues. He will continue the metoprolol and monitor his blood pressure prior to taking this medication. He will hold the amlodipine and losartan-hydrochlorothiazide at this time. Patient has a scheduled appointment with cardiology on October 04 which he is to keep and discuss his blood pressure medications. Discussed alcohol cessation, resources given to patient by care coordination. Patient discharged home in stable condition. Status at Discharge Functional status at discharge: independent ambulation Time Spent with Patient Time attestation: Total time spent providing and/or coordinating discharge services: Time spent: Greater than 30 minutes Exam Narrative: AF HR 83 RR 18 SpO2 100 BP 107/57 General: male in no acute respiratory distress who is nontoxic appearing, lying semi recumbent in bed. HEENT: Normocephalic. Atraumatic. Pupils equal round reactive to light. Extraocular movement intact. Sclera clear and anicteric. No facial asymmetry. Chest: Lungs are clear to auscultation bilaterally. No wheezes or crackles. CV: Heart was regular rate and rhythm. S1/S2. No murmurs, gallops, or rubs. Abd: Abdomen was soft. Nontender. Nondistended. Positive bowel sounds. No organomegaly or masses. Ext: No clubbing, cyanosis, or edema. 2+ DP pulses bilaterally. Neuro: Patient is alert and oriented x4. Cranial nerves 2-12 are intact. Speech is clear. Psych: Normal mood and affect. Patient is pleasant and cooperative. Skin: Warm and dry. No rashes noted. DS: Data Data Completed and Pending Completed studies during hospitalization: Renal US Labs on day of discharge: Labs from last 24 hours 09/24/23 09/24/23 09/24/23 11:43 07:40 07:00 WBC 5.5 RBC 2.88 L Hgb 9.9 L Hct 29.9 L MCV 103.8 H MCH 34.4 H MCHC 33.1 RDW 13.4 Plt Count 241 MPV 9.0 Immature Gran % (Auto) 0.5 Neut % (Auto) 49.5 Lymph % (Auto) 35.3 [place] % (Auto) 11.6 H Eos % (Auto)
--- NOTE | 2023-09-24 14:30 | PC.NURSE ---
Pt DC by Nichol TANG
== END 2023-09-24 15:15 | disposition home or self-care (01) | DRG 683 ==
LOC: ANHED 19:44 → ANH3MEDSUR 21:12
PROVIDERS: Emergency Medicine; Nurse Practitioner; Student in an Organized Health Care Education/Training Program; Admitting Provider Internal Medicine; Emergency Provider Student in an Organized Health Care Education/Training Program; PCP Family Medicine; Visit Provider Internal Medicine
DX: N17.9 Acute kidney failure, unspecified (principal); E87.1 Hypo-osmolality and hyponatremia; Q60.0 Renal agenesis, unilateral; F10.129 Alcohol abuse with intoxication, unspecified; I95.1 Orthostatic hypotension; I10 Essential (primary) hypertension; E78.5 Hyperlipidemia, unspecified; F17.210 Nicotine dependence, cigarettes, uncomplicated
CPT/HCPCS: 36415; 70450; 71045; 72125; 76775; 80053; 80307; 81001; 82565; 82607; 82747; 82803; 82948; 83605; 84295; 84484; 85025; 87086; 93005; 96360; 97161; 97165; 99285; A9270; J3411; J3475; J7030; J7120

== ENCOUNTER 2023-09-27 12:17 | Outpatient (CLI) | payer MEDICARE, SELFPAY ==
[2023-09-27 13:44] LABS: Alanine Aminotransferase 25 U/L (6-50); Albumin Level 4.3 g/dL (3.5-5.1); Alkaline Phosphatase 87 U/L (38-126); Anion Gap 10 mmol/L (4-12); Aspartate Amino Transferase 31 U/L (17-59); Bilirubin,Total 0.9 mg/dL (0.2-1.3); Blood Urea Nitrogen 13 mg/dL (9-20); Calcium 9.3 mg/dL (8.4-10.2); Carbon Dioxide 24 mmol/L (22-30); Chloride 102 mmol/L (98-107); Estimated Glomerular Filt Rate 47; Glucose 135 mg/dL (65-110); Potassium 3.7 mmol/L (3.4-5.0); Sodium 136 mmol/L (137-145)
== END 2023-09-27 12:18 | disposition home or self-care (01) ==
LOC: ANHLAB 12:19
PROVIDERS: PCP Family Medicine; Visit Provider Student in an Organized Health Care Education/Training Program
DX: N17.9 Acute kidney failure, unspecified (principal)
CPT/HCPCS: 36415; 80053

== ENCOUNTER 2024-01-30 15:24 | Emergency (ER) | payer MEDICARE, SELFPAY ==
--- NOTE | ~2024-01-30 | CT_ITS ---
CT brain wo con Ordering provider: Bridget Mitchell PA-C History: 68 years Male with . AMS, intoxication . Comparison: September 20, 2023 Technique: CT of the head without contrast. Radiation reduction technique utilized.The dose-length product was 605.33 mGy-cm. FINDINGS: BRAIN PARENCHYMA AND CSF SPACES: Mild leukoaraiosis and diffuse cortical atrophy. Mild atheromatous d isease. No midline shift, mass effect or hemorrhage. The brain parenchyma and CSF spaces are otherwi se normal. VISUALIZED PARANASAL SINUSES: Well aerated. MASTOIDS: Well aerated. BONES: The bones appear intact. SOFT TISSUES: Visualized nasopharynx is normal. Superficial soft tissues are normal. IMPRESSION: No acute intracranial findings. Reviewed, dictated and finalized at location A.
[2024-01-30 15:23] VITALS: BP 140/81; PULSE 81; RESP 18; TEMP 36.9; O2SAT 100
--- NOTE | 2024-01-30 15:59 | ED.AMS ---
HPI - Altered Mental Status General Chief Complaint: Altered Mental Status Stated Complaint: AMS WITH ETOH Time Seen by Provider: 01/30/24 15:34 Source: patient and EMS Mode of arrival: EMS Limitations: intoxication History of Present Illness HPI narrative: This is a 68 year old male that presents to the ER for alcohol intoxication. Patient stumbling and altered outside of a bar. His friends called 911. Patient has no complaints currently. Reports drinking a little today. Related Data Allergies Allergy/AdvReac Type Severity Reaction Status Date / Time No Known Allergies Allergy Verified 03/01/23 11:25 Review of Systems Review of Systems: ROS unobtainable: Yes unobtainable due to mental status PMFSH Past Medical History Medical History (Updated 01/30/24 @ 16:40 by Bridget Mitchell PA-C) Dyslexia on examination Social History Social History (Updated 03/01/23 @ 11:25 by Teagan Camilo MA) Smoking packs per day: 0.33 Smoking cigarettes per day: 6.6 Years smoked: 40 Smoking pack-years: 13.20 Smoking status: Current every day smoker Tobacco type: cigarettes Additional smoking assessment comments: used to smoke a pack a day but has cut down to 1/3 pacl daily Alcohol intake: current Drinks per week: 30 Substance use: never Do You Feel Safe in your Home?: Yes Lack of Transportation: No Lack of Food: Never True Current Housing: I Have Housing Concerned About Future Housing: No Difficulty Paying Gas/Electric Bills: No Difficulty Paying for Meds: No Currently Unemployed: No Education: High School Diploma/GED Difficulty w/ Childcare or Family Care: No Living arrangements: with family Spiritual care concerns: No Agree to blood products: Yes Exam Narrative: GENERAL: Well-appearing, well-nourished, and in no acute distress. HEAD: Normocephalic, atraumatic. EYES: PERRLA and EOMI. ENT: Nares clear, no rhinorrhea or epistaxis. Mucous membranes moist. Oropharynx without tonsillar hypertrophy exudate or other lesions. Bilateral TMs pearly bravo non-bulging NECK: Supple. No adenopathy or masses. CHEST: Clear to auscultation. No respiratory distress. No wheezes rales or rhonchi HEART: Regular rate and rhythm. No murmur heard. Normal peripheral pulses. ABDOMEN: Soft, nontender, nondistended, normal active bowel sounds. EXTREMITIES: Normal range of motion. No edema. SKIN: Warm, dry, no rash. NEURO: No focal deficits. Alert and oriented x2. CN II-XII grossly intact PSYCH: Normal mood and affect Course Course Emergency Course: Patient is now clinically sober. Ambulatory with a steady gait. Alert and oriented Vital Signs Vital signs: Vital Signs Temperature 98.4 F 01/30/24 15:23 Pulse Rate 81 01/30/24 15:23 Respiratory Rate 18 01/30/24 15:23 Blood Pressure 140/81 01/30/24 15:23 Pulse Oximetry 100 01/30/24 15:23 Oxygen Delivery Room Air 01/30/24 15:23 Temperature 98.4 F 01/30/24 15:23 Pulse Rate 81 01/30/24 15:23 Respiratory Rate 18 01/30/24 15:23 Blood Pressure 140/81 01/30/24 15:23 Pulse Oximetry 100 01/30/24 15:23 Oxygen Delivery Room Air 01/30/24 15:23 MDM - Altered Mental Status MDM Narrative Medical decision making narrative: Patient presents to the emergency department for alcohol intoxication. Patient had been drinking at a bar. Was stumbling outside of the bar and had fallen. Intoxicated upon arrival, although has no deficits. Is neurologically intact. His vitals are stable. He has no complaints. CT brain without acute intracranial findings. Patient able to sober up in the ER. Is now alert and oriented. Ambulatory with a steady gait. We were able to reach patient's family member who gave him a sober ride Differential Diagnosis Differential diagnosis: Likely alcoholic intoxication, altered mental status, delirium and other (subdural hematoma) Imaging Data Radiologist's impression: ITS Impressio
--- NOTE | 2024-01-30 16:49 | PC.NURSE ---
calling pt sibling to find pt a ride home.
== END 2024-01-30 20:07 | disposition home or self-care (01) ==
PROVIDERS: Emergency Provider Physician Assistant; PCP Family Medicine
DX: F10.120 Alcohol abuse with intoxication, uncomplicated (principal); Y90.9 Presence of alcohol in blood, level not specified; F17.210 Nicotine dependence, cigarettes, uncomplicated
CPT/HCPCS: 70450; 99284

== ENCOUNTER 2024-03-24 10:55 | Outpatient (CLI) | payer MEDICARE, SELFPAY ==
[2024-03-24 11:50] LABS: Alanine Aminotransferase 38 U/L (6-50); Albumin Level 4.6 g/dL (3.5-5.1); Alkaline Phosphatase 74 U/L (38-126); Anion Gap 8 mmol/L (4-12); Aspartate Amino Transferase 42 U/L (17-59); Bilirubin,Total 1.8 mg/dL (0.2-1.3); Blood Urea Nitrogen 13 mg/dL (9-20); Calcium 9.3 mg/dL (8.4-10.2); Carbon Dioxide 26 mmol/L (22-30); Chloride 103 mmol/L (98-107); Cholesterol 187 mg/dL (0-200); Estimated Glomerular Filt Rate > 60; Glucose 106 mg/dL (65-110); Potassium 3.9 mmol/L (3.4-5.0); Sodium 137 mmol/L (137-145); Triglycerides 55 mg/dL (<150)
[2024-03-24 11:54] LABS: LDL Cholesterol Direct 53 mg/dL
[2024-03-24 11:57] LABS: HDL Direct 116 mg/dL
== END 2024-03-24 10:56 | disposition home or self-care (01) ==
PROVIDERS: PCP Family Medicine; Visit Provider Internal Medicine Cardiovascular Disease
DX: E78.5 Hyperlipidemia, unspecified (principal)
CPT/HCPCS: 36415; 80053; 80061

== ENCOUNTER 2024-07-07 21:06 | Emergency (ER) | payer MEDICARE, SELFPAY ==
[2024-07-07 21:20] VITALS: BP 122/66; PULSE 78; RESP 18; TEMP 36.6; O2SAT 96
--- NOTE | 2024-07-07 22:45 | PC.NURSE ---
Pt ambulates to triage desk, asked if he could leave. Pt state he will call himself a cab and his wallet to pay. Pt was given a phone number to call [employer], assisted the pt with the call on triage phone. Pt gave address to [employer] service and cab company stated will come by to get him. Pt v/u of not wanting to be seen, denies pain, and is able to ambulate with steady gait.
--- NOTE | 2024-07-07 23:57 | PC.NURSE ---
[employer] arrived to triage at this time to pick pt up. Pt left in cab and left without being seen by provider.
== END 2024-07-08 00:42 | disposition left against medical advice (07) ==
PROVIDERS: PCP Family Medicine
DX: Z04.3 Encounter for examination and observation following other accident (principal)
CPT/HCPCS: 99199

== ENCOUNTER 2024-12-11 16:49 | Emergency (ER) | payer MEDICARE, SELFPAY ==
[2024-12-11] VITALS (12 sets, daily range): BP systolic 126–146; BP diastolic 76–93; PULSE 71–91; RESP 14–20; TEMP 36.8; O2SAT 95–98
--- NOTE | ~2024-12-11 | CT_ITS ---
EXAMINATION: 1. CT facial & cervical spine wo DATE: 12/11/2024 17:35 INDICATION: Head injury TECHNIQUE: 1. Computed tomography (CT) of the maxillofacial region and of the cervical spine were performed without intravenous contrast. Sagittal and coronal reconstructions of both regions were obtained. Automated exposure control and iterative reconstruction technique were employed. The dose-length product was 441.44 mGy-cm. COMPARISON: None. FINDINGS: Maxillofacial CT: . Mild angulation of a chronic appearing right nasal bone fracture with no associated soft tissue swelling to suggest acute injury. No acute maxillofacial fractures identified. Specifically the mandible, zygomatic arches and mccain of the orbits and paranasal sinuses are all intact. Orbits are normal. Mild mucosal thickening the bilateral ethmoid and maxillary sinuses. Mastoid air cells and middle ear cavities are clear. Prominent dental and periodontal disease including multiple absent teeth and large periapical lucency surrounding what appear to be the bilateral mandibular canines. Cervical spine CT: Reversal of the upper cervical lordosis. Vertebral body heights are normal. No fracture. Moderate disc height loss at C3-C4, C5-C6 and C6-C7. Mild disc height loss at the remaining cervical levels. Disc bulges or posterior disc osteophyte complexes contribute to mild central canal stenosis at C3-C4 through C6-C7. Multilevel moderate to severe cervical facet and uncovertebral osteoarthritis. This contributes to moderate neural foraminal stenosis bilaterally at C3-C4, on the left at C4-C5 and C5-C6 and bilaterally at C6-C7. Mild neural from stenosis remaining cervical levels. Atherosclerotic calcifications at the bilateral carotid bulbs. Cervical soft tissues are otherwise unremarkable. Visualized ap ices of lungs are clear. IMPRESSION: 1. No acute maxillofacial fractures. 2. Moderate cervical spondylosis with no acute osseous adenopathy. 3. Prominent dental and periodontal disease. Reviewed, dictated and finalized at location A.
--- NOTE | ~2024-12-11 | CT_ITS ---
EXAMINATION: CT brain wo con DATE: 12/11/2024 17:35 INDICATION: Head injury. TECHNIQUE: Computed tomography (CT) of the head was performed without intravenous contrast. Sagittal and coronal reconstructions were performed. Automated exposure control and iterative reconstruction technique were employed. The dose-length product was 605.33 mGy-cm. COMPARISON: head CT dated 01/30/2024 FINDINGS: Large left parietal scalp hematoma and laceration with a couple skin tushar. No fracture. No acute intracranial hemorrhage, acute infarction or abnormal extra axial fluid collection. There is mild scattered white matter hypoattenuation consistent with chronic small vessel ischemic disease. Symmetric prominence of the sulci consistent with mild age-appropriate diffuse cerebral volume loss. Ventricles are normal and symmetric. No mass/mass effect. Mild mucosal thickening the maxillary sinuses. The orbits and mastoid air cells are normal. IMPRESSION: 1. Large left parietal scalp hematoma with laceration. No fracture or acute intracranial process. 2. Stable appearance of age-related changes including mild diffuse volume loss and mild scattered white matter hypoattenuation consistent with chronic small vessel ischemic disease. Reviewed, dictated and finalized at location A. IMPRESSION: 1. Large left parietal scalp hematoma with laceration. No fracture or acute int racranial process. 2. Stable appearance of age-related changes including mild diffuse volume loss and mild scattered white matter hypoattenuation consistent with chronic small v essel ischemic disease.
--- NOTE | 2024-12-11 17:11 | ED.GENADULT ---
HPI - General Adult General Chief complaint: Head Injury Stated complaint: [id number] lac Time Seen by Provider: 12/11/24 16:59 History of Present Illness HPI narrative: 68-year-old male presents to the emergency department for evaluation after having a suspected ground level fall. Patient states he had been drinking at the bar celebrating the winning of a 10,000 dollar parlay bet on college football. Patient states he had 4 shots of Tequila and drove home. Patient was found ambulating and is parking lot of his apartment building with a head injury. Patient was transported emergency department by EMS. Upon arrival emergency department patient denies any pain or complaint but does have a left-sided head injury. Related Data Allergies Allergy/AdvReac Type Severity Reaction Status Date / Time No Known Allergies Allergy Verified 07/07/24 21:08 Review of Systems Review of Systems: All systems reviewed & are unremarkable except as noted in HPI and below PMFSH Past Medical History Medical History (Updated 12/11/24 @ 18:19 by Slick Chun MD) Dyslexia on examination Social History Social History (Updated 03/01/23 @ 11:25 by Teagan Camilo MA) Smoking packs per day: 0.33 Smoking cigarettes per day: 6.6 Years smoked: 40 Smoking pack-years: 13.20 Smoking status: Current every day smoker Tobacco type: cigarettes Additional smoking assessment comments: used to smoke a pack a day but has cut down to 1/3 pacl daily Alcohol intake: current Drinks per week: 30 Substance use: never Do You Feel Safe in your Home?: Yes Lack of Transportation: No Lack of Food: Never True Current Housing: I Have Housing Concerned About Future Housing: No Difficulty Paying Gas/Electric Bills: No Difficulty Paying for Meds: No Currently Unemployed: No Education: High School Diploma/GED Difficulty w/ Childcare or Family Care: No Living arrangements: with family Spiritual care concerns: No Agree to blood products: Yes Exam Narrative: APPEARANCE: Well appearing, no pain, no distress, well-nourished. HEAD: normocephalic, left-sided head injury. EYES: PERRLA/EOMI, conjunctivae clear. NOSE: Normal no drainage EARS:TMS clear with good light reflex. THROAT: Pharynx clear, no exudate. NECK: Supple. No adenopathy, no masses. RESPIRATORY: Airway patent, respirations nonlabored. Clear to auscultation bilaterally, no rales, rhonchi, wheezing. CARDIOVASCULAR: Regular rate and rhythm without murmurs rubs or gallops. ABDOMINAL: Soft, nontender, nondistended, normal bowel sounds MUSCULOSKELETAL: Moves all extremities. Strength/ROM intact, No edema, No calf tenderness. NEURO: Alert. Cranial nerves II through XII intact. Good gait. Good coordination SKIN: Warm, dry. Normal Color Course Vital Signs Vital signs: Vital Signs Temperature 98.3 F 12/11/24 16:48 Pulse Rate 73 12/11/24 16:48 Respiratory Rate 20 12/11/24 16:48 Blood Pressure 141/76 H 12/11/24 16:48 Pulse Oximetry 96 12/11/24 16:48 Oxygen Delivery Room Air 12/11/24 16:48 Temperature 98.3 F 12/11/24 16:48 Pulse Rate 73 12/11/24 16:48 Respiratory Rate 20 12/11/24 16:48 Blood Pressure 141/76 H 12/11/24 16:48 Pulse Oximetry 96 12/11/24 16:48 Oxygen Delivery Room Air 12/11/24 16:48 Procedures Laceration Laceration 1: Date: 12/11/24 Time: 17:12 Site: scalp Side (If applicable): left Size (cm): 2 Description: linear and irregular Depth: simple, single layer Pre-repair: wound explored and irrigated ====== Skin Level ====== Skin layer closed with: tushar Number of sutures: 2 Technique: simple, interrupted ====== Subcutaneous Layer ====== ====== Muscle Layer ====== ====== Tendon Layer ====== Medical Decision Making MDM Narrative Medical decision making narrative: 68-year-old male present to the emergency department for evaluation for left-sided head injury after a suspected ground level fall. Patient did have a 2 cm laceration that was repaired with tushar as described in the procedure note. Patient had negative imaging of brain face and neck. Patient denies any other pain or injury. Patient was able to at his baseline and patient was discharged home. Differential Diagnosis Differential Diagnosis: Subdural hematoma, subarachnoid hemorrhage, cervical spine fracture, skull laceration Vital Signs Vital Signs: Vital Signs Temperature 98.3 F 12/11/24 16:48 Pulse Rate 73 12/11/24 16:48 Respiratory Rate 20 12/11/24 16:48 Blood Pressure 141/76 H 12/11/24 16:48 Pulse Oximetry 96 12/11/24 16:48 Oxygen Delivery Room Air 12/11/24 16:48 Temperature 98.3 F 12/11/24 16:48 Pulse Rate 73 12/11/24 16:48 Respiratory Rate 20 12/11/24 16:48 Blood Pressure 141/76 H 12/11/24 16:48 Pulse Oximetry 96 12/11/24 16:48 Oxygen Delivery Room Air 12/11/24 16:48 Lab Data Lab results reviewed: Yes I reviewed the patient's lab results. Labs: Lab Results 12/11/24 Range/Units 16:58 POC Capillary Glucose 102 (65-105) mg/dl Imaging Data Radiologist's impression: Impressions Head CT 12/11/24 17:40 IMPRESSION: 1. Large left parietal scalp hematoma with laceration. No fracture or acute intracranial process. 2. Stable appearance of age-related changes including mild diffuse volume loss and mild scattered white matter hypoattenuation consistent with chronic small vessel ischemic disease. Head/Cervical Spine/Facial Bones CT 12/11/24 17:43 IMPRESSION: 1. No acute maxillofacial fractures. 2. Moderate cervical spondylosis with no acute osseous adenopathy. 3. Prominent dental and periodontal disease. Discharge Plan Discharge Clinical Impression: Contusion of head, Laceration of scalp Patient Disposition: Home Condition: Stable Instructions: Antibiotic Form, Head Injury (ED), Staple Care (ED) Additional Instructions: [place] need to be removed and in 7-10 days. Refrain from excessive alcohol consumption. Have close follow-up with your primary care physician. Patient Language: Jordanian Prescriptions: No Action metoprolol succinate 25 mg tablet extended release 24 hr 25 mg PO DAILY Qty: 90 2RF atorvastatin 40 mg tablet 40 mg PO DAILY Qty: 90 2RF amlodipine 10 mg tablet See Rx Instructions .ROUTE .COMPLEX Qty: 90 2RF Dose Instruction: TAKE 1 TABLET BY MOUTH EVERY DAY Rx Instructions: TAKE 1 TABLET BY MOUTH EVERY DAY Follow-up/Referrals: Balbina Antonio MD [Primary Care Provider, Family Practice]
[2024-12-11] MEDS: TETANUS,DIPHTHERIA,AC PERTUSSIS ADULT (0.5 ML) BOOSTRIX IM (17:23)
--- NOTE | 2024-12-11 18:40 | PC.NURSE ---
Pt able to ambulate around ER. Has moments where he is unsteady. Sister Selin will be assisting him into his apartment. A&Ox4
--- NOTE | 2024-12-11 19:32 | PC.NURSE ---
Pt DC home with family per MD order. Pt and family provided with follow up care instructions and medication education. Pt verbalized understanding and teach back provided. Pt ambulatory out of ED, appears in NAD.
== END 2024-12-11 19:25 | disposition home or self-care (01) ==
PROVIDERS: Emergency Provider Emergency Medicine; PCP Family Medicine
DX: S01.01XA Laceration without foreign body of scalp, initial encounter (principal); Z23 Encounter for immunization; F17.210 Nicotine dependence, cigarettes, uncomplicated; M47.812 Spondylosis without myelopathy or radiculopathy, cervical region; K05.6 Periodontal disease, unspecified; Z79.899 Other long term (current) drug therapy; X58.XXXA Exposure to other specified factors, initial encounter
CPT/HCPCS: 12001; 70450; 70486; 72125; 82948; 90471; 90715; 99284